=== PATIENT | female | born 1960 ===

== ENCOUNTER 2017-07-30 15:00 | Emergency (ER) | payer MEDICAID ==
[2017-07-30 15:01] VITALS: BMI 32.6
[2017-07-30 15:11] VITALS: BP 127/62; PULSE 90; TEMP 97.7; O2SAT 98
--- NOTE | 2017-07-30 15:46 | C.PDOC ---
History Of Present Illness 57 y/o female with Hx of chronic pain presents to ED with complaints of left shoulder pain for 1 week. Patient states she took Tylenol with no relief and denies falls, injury, numbness, weakness or any other complaints at this time. Time Seen by Provider: 07/30/17 15:17 Chief Complaint (Nursing): Upper Extremity Problem/Injury History Per: Patient History/Exam Limitations: no limitations Onset/Duration Of Symptoms: Days Current Symptoms Are (Timing): Still Present Quality: "Pain" Past Medical History Reviewed: Historical Data, Nursing Documentation, Vital Signs Vital Signs: Last Vital Signs Temp 97.7 F 07/30/17 15:06 Pulse 90 07/30/17 15:06 Resp 20 07/30/17 16:07 BP 127/62 07/30/17 15:06 Pulse Ox 98 07/30/17 15:56 - Medical History PMH: Anxiety, Arthritis (GENERALIZED), Bipolar Disorder, Depression, Fractures ( RIGHT HEEL), Gall Bladder Disease, Hypercholesterolemia (NO MEDS. DIET ONLY), Migraine Surgical History: Cholecystectomy - [facility] Procedures ATTACH PEDICLE GRAFT NEC (03/12/15) LEG VARICOS V LIGA-STRIP (03/12/15) OTHER LOCAL DESTRUC SKIN (03/12/15) Family History: States: No Known Family Hx - Social History Hx Alcohol Use: No Hx Substance Use: No - Immunization History Hx Influenza Vaccination: Yes Hx Pneumococcal Vaccination: Yes Review Of Systems Constitutional: Negative for: Fever, Chills Cardiovascular: Negative for: Chest Pain, Palpitations Respiratory: Negative for: Cough, Shortness of Breath Gastrointestinal: Negative for: Nausea, Vomiting Musculoskeletal: Positive for: Shoulder Pain. Negative for: Neck Pain, Back Pain Skin: Negative for: Rash Neurological: Negative for: Weakness, Numbness, Headache, Dizziness Physical Exam - Physical Exam Appears: Non-toxic, No Acute Distress Skin: Normal Color, Warm, Dry, No Rash Head: Atraumatic, Normacephalic Eye(s): bilateral: Normal Inspection Oral Mucosa: Moist Neck: Normal ROM, Supple Chest: Symmetrical Cardiovascular: Rhythm Regular, No Murmur Respiratory: Normal Breath Sounds, No Wheezing Extremity: Tenderness (to anterior left shoulder), Capillary Refill (<2 seconds) , No Deformity, No Swelling, Other (Pain with abduction of left shoulder) Pulses: Left Radial: Normal, Right Radial: Normal Neurological/Psych: Oriented x3, Normal Speech, Normal Motor, Normal Sensation ED Course And Treatment O2 Sat by Pulse Oximetry: 98 (RA) Pulse Ox Interpretation: Normal Medical Decision Making Medical Decision Making: Patient with shoulder pain, atraumatic. Toradol IM give for pain. Shortly after the patient is feeling better and asking for discharge papers. She is in no acute distress. Rx given. Patient instructed to follow up with PCP Disposition Counseled Patient/Family Regarding: Diagnosis, Need For Followup, Rx Given - Disposition Referrals: Frantz Duffy MD [Staff Provider] - Disposition: HOME/ ROUTINE Disposition Time: 15:55 Condition: IMPROVED Additional Instructions: Follow up with your primary medical doctor or clinic in 2-5 days for further evaluation. Take medications as prescribed. Return to the emergency department at any time if symptoms persist or worsen. Prescriptions: traMADol [Ultram] 50 mg PO Q8 #20 tab Instructions: Shoulder Pain (ED) Forms: [employer] ([place]) - POA Present On Arrival: None - Clinical Impression Clinical Impression: Shoulder pain - PA / STOCKROOM CLERK / Resident Statement MD/DO has reviewed & agrees with the documentation as recorded. - Scribe Statement The provider has reviewed the documentation as recorded by the Sophia Masterson All medical record entries made by the Sophia were at my direction and personally dictated by me. I have reviewed the chart and agree that the record accurately reflects my personal performance of the history, physical exam, medical decision making, and the department course for this patient. I have also personally directed, reviewed, and agree with the discharge instructions and disposition.
[2017-07-30 16:08] VITALS: RESP 20
== END 2017-07-30 16:07 | disposition home or self-care (01) ==
LOC: C.ER 15:00
DX: M25.512 Pain in left shoulder (principal)
CPT/HCPCS: 96372; 99284; J1885